=== PATIENT | male | born 1980 | race African-American/Black ===

== ENCOUNTER 2018-09-13 18:23 | Emergency (ER) | payer MEDICAID, OTHER ==
[~2018-09-13] VITALS: Ht 177.8 cm; Wt 138.0 kg
[2018-09-13 19:45] VITALS: BP 196/116
[2018-09-13] MEDS ORDERED: IBUPROFEN 800MG TABLET PO ONE (22:30)
== END 2018-09-13 23:59 | disposition home or self-care (01) ==
LOC: ER 18:23
DX: S32.2XXA Fracture of coccyx, initial encounter for closed fracture (principal); M54.5 Low back pain; Z87.828 Personal history of other (healed) physical injury and trauma; X58.XXXA Exposure to other specified factors, initial encounter; Y93.89 Activity, other specified; Y92.018 Other place in single-family (private) house as the place of occurrence of the external cause
CPT/HCPCS: 72220; 99283

== ENCOUNTER 2023-11-16 23:04 | Emergency (ER) | payer MEDICAID ==
[~2023-11-16] VITALS: Ht 177.8 cm; Wt 150.0 kg
[2023-11-16 23:22] VITALS: TEMP 98.3
[2023-11-17] MEDS: HYDROCODONE/ACETAMINOPHEN 5/325MG TABLET PO ONE (02:07)
[2023-11-17 03:03] LABS: BASOPHILS % 0.8 % (0.0-2.0); EOSINOPHILS % 1.5 % (0.0-5.0); HEMATOCRIT. 39.8 % (42.0-52.0); HEMOGLOBIN. 14.1 g/dL (14.0-18.0); MEAN CORPUSCULAR HEMOGLOBIN 28.5 pg (28.0-32.0); MEAN CORPUSCULAR HGB CONC 35.4 g/dL (31.0-37.0); MEAN CORPUSCULAR VOLUME 80.6 fL (80.0-94.0); MEAN PLATELET VOLUME 7.3 fl (7.4-10.4); MONOCYTES % 13.7 % (2.0-8.0); PLATELET 234 x1000/uL (130-400); RED BLOOD CELL COUNT 4.94 mill/uL (4.7-6.1); RED CELL DISTRIBUTION WIDTH 13.6 % (11.6-14.6); WHITE BLOOD COUNT 3.8 x1000/uL (4.5-11.0)
[2023-11-17] MEDS ORDERED: CYCL10TA21 MT (03:06)
[2023-11-17 03:13] LABS: CHLORIDE 106 mEq/L (98-107); POTASSIUM 3.5 mEq/L (3.5-5.1); SODIUM 140 mEq/L (136-145)
[2023-11-17 03:14] LABS: CALCIUM 9.1 mg/dL (8.7-10.4); CARBON DIOXIDE 27 mEq/L (21-32)
[2023-11-17 03:19] LABS: GLUCOSE 155 mg/dL (70-105); UREA NITROGEN BLOOD 11 mg/dL (9-23)
[2023-11-17] MEDS: HYDRALAZINE HCL 10MG TABLET PO ONE (04:04)
[2023-11-17 04:50] VITALS: BP 177/104; PULSE 89; RESP 16
== END 2023-11-17 04:52 | disposition home or self-care (01) ==
LOC: ER 23:04
DX: M54.50 Low back pain, unspecified (principal); I10 Essential (primary) hypertension; Z99.2 Dependence on renal dialysis
CPT/HCPCS: 36415; 80048; 85025; 99283